=== PATIENT | male | born 1960 | race African-American/Black ===

== ENCOUNTER → 2017-11-22 | Emergency (ER) | payer OTHER | END | disposition left against medical advice (07) | LOC: CANPREER → ER 14:19 | DX: R51 Headache (principal); Z53.21 Procedure and treatment not carried out due to patient leaving prior to being seen by health care provider ==

== ENCOUNTER 2020-10-17 21:30 | Emergency (ER) | payer MEDICARE, MEDICAID ==
[~2020-10-17] VITALS: Ht 167.6 cm; Wt 68.0 kg
[2020-10-17] MEDS ORDERED: ONDANSETRON HCL 4 MG/2 ML VIAL IV ONE (22:45)
[2020-10-17] MEDS ORDERED: HYDROmorphone HCL 2 MG/ML VL IV ONE (22:45)
[2020-10-17] MEDS ORDERED: SODIUM CHLORIDE 0.9% 1,000 ML IV ONE (22:45)
[2020-10-17 22:51] LABS: Basophils # (auto) 0.1 10 ^3/uL (0-0.2); Basophils % (auto) 0.6 % (0.0-2.0); Eosinophils # (auto) 0.3 10 ^3/uL (0-0.8); Eosinophils % (auto) 3.1 % (0.0-7.0); Hematocrit 47.2 % (41.0-53.0); Hemoglobin 15.8 g/dL (13.5-17.5); Lymphocytes # (auto) 1.5 10 ^3/uL (0.4-5.4); Lymphocytes % (auto) 17.2 % (10.0-50.0); Mean Corpuscular Hgb Conc. 33.5 g/dL (32.0-36.0); Mean Corpuscular Volume 95.3 fL (80.0-100.0); Monocytes # (auto) 0.6 10 ^3/uL (0-1.3); Monocytes % (auto) 6.9 % (0.0-12.0); Neutrophils # (auto) 6.3 10 ^3/uL (1.6-8.6); Neutrophils % (auto) 72.2 % (37.0-80.0); Nucleated Red Blood Cells % 0.1 %; Platelet Count (auto) 149 10^3/uL (140-450); Red Blood Cells 4.95 10^6/uL (4.5-5.90); Red Cell Distribution Width 14.1 % (11.8-14.3); White Blood Cell 8.7 10^3/uL (4.4-10.8)
[2020-10-17 23:08] LABS: Albumin 3.4 g/dL (3.4-5.0); Anion Gap 7 (5-15); Blood Urea Nitrogen 20 mg/dL (7-18); Calcium 8.8 mg/dL (8.5-10.1); Carbon Dioxide 26 mmol/L (21-32); Chloride 103 mmol/L (98-107); Glucose 96 mg/dL (74-106); Potassium 4.5 mmol/L (3.5-5.1); Sodium 136 mmol/L (136-145)
[2020-10-17 23:14] LABS: Alanine Aminotransferase 25 U/L (16-61); Alkaline Phosphatase 125 U/L (45-117); Aspartate Aminotransferase 20 U/L (15-37); BUN/Creatinine Ratio 24.4; Bilirubin, Total 0.4 mg/dL (0.2-1.0); GFR African American 123 mL/min; GFR Non-African American 102 mL/min; Total Protein 7.7 g/dL (6.4-8.2)
[2020-10-18] MEDS ORDERED: SODIUM CHLORIDE 0.9% 1,000 ML IV ONE (01:30)
[2020-10-18] MEDS ORDERED: THIAMINE INJ 100 MG in SODIUM CHLORIDE 0.9% 1,000 ML IV ONE (02:45)
[2020-10-18 03:40] LABS: Urine Bacteria NONE SEEN /hpf (None Seen); Urine Blood Negative /uL (Negative); Urine Mucus FEW (None Seen); Urine Specific Gravity 1.018 (1.001-1.035); Urine WBC 1 /hpf (0 - 3)
[2020-10-18 04:00] VITALS: BP 119/71
[2020-10-18] MEDS ORDERED: DICYCLOMINE HCL (10MG/ML) 2 ML AMPULE IM ONE (04:00)
== END 2020-10-18 05:52 | disposition home or self-care (01) ==
LOC: EDBD 21:30 → ER 21:33
DX: F11.23 Opioid dependence with withdrawal (principal); T40.0X5A Adverse effect of opium, initial encounter; G89.4 Chronic pain syndrome; Z87.442 Personal history of urinary calculi; Z88.6 Allergy status to analgesic agent; Y92.89 Other specified places as the place of occurrence of the external cause
CPT/HCPCS: 36415; 74176; 80053; 81001; 83605; 83880; 84484; 85025; 87040; 87086; 93005; 96361; 96372; 96374; 96375; 99285; J0500; J1170; J2405; J3411; J7030

== ENCOUNTER → 2021-12-29 | Outpatient (CLI) | payer MEDICARE, MEDICAID | END | disposition home or self-care (01) | LOC: LAB 10:31 | PROVIDERS: ATTEND Internal Medicine Gastroenterology | DX: Z12.11 Encounter for screening for malignant neoplasm of colon (principal) | CPT/HCPCS: 82274 ==

== ENCOUNTER → 2022-02-03 | Outpatient (CLI) | payer MEDICARE, MEDICAID ==
[2022-02-03 12:54] LABS: Albumin 3.4 g/dL (3.4-5.0); Bilirubin, Direct 0.1 mg/dL (0-0.2); Bilirubin, Total 0.4 mg/dL (0.2-1.0)
== END | disposition home or self-care (01) ==
LOC: LAB 11:50
PROVIDERS: ATTEND Internal Medicine Gastroenterology
DX: R11.2 Nausea with vomiting, unspecified (principal)
CPT/HCPCS: 36415; 80076

== ENCOUNTER → 2023-01-29 | Outpatient (CLI) | payer MEDICARE, MEDICAID ==
[~2023-01-29] VITALS: Ht 157.5 cm; Wt 59.0 kg
[~2023-01-29] MED LIST: REGADENOSON 0.4 MG/5 ML SYRG IV ONE
== END | disposition home or self-care (01) ==
LOC: XYW 09:10
PROVIDERS: ATTEND Internal Medicine
DX: R07.9 Chest pain, unspecified (principal)
CPT/HCPCS: 78452; 93017; A9500; J2785

== ENCOUNTER 2024-04-05 06:22 | Inpatient (IN) | payer MEDICARE, MEDICAID ==
[2024-04-03 12:46] LABS: Urine Bacteria None Seen /hpf (None Seen)
[2024-04-03 12:51] LABS: Basophils # (auto) 0 10 ^3/uL (0-0.2); Basophils % (auto) 1.2 % (0.0-2.0); Eosinophils # (auto) 0.1 10 ^3/uL (0-0.8); Eosinophils % (auto) 3.3 % (0.0-7.0); Hematocrit 45.3 % (41.0-53.0); Hemoglobin 15.2 g/dL (13.5-17.5); Lymphocytes # (auto) 1.7 10 ^3/uL (0.4-5.4); Lymphocytes % (auto) 43.3 % (10.0-50.0); Mean Corpuscular Hemoglobin 31.5 pg (28.0-32.0); Mean Corpuscular Hgb Conc. 33.6 g/dL (32.0-36.0); Mean Corpuscular Volume 93.8 fL (80.0-100.0); Monocytes # (auto) 0.3 10 ^3/uL (0-1.3); Monocytes % (auto) 6.9 % (0.0-12.0); Neutrophils # (auto) 1.8 10 ^3/uL (1.6-8.6); Neutrophils % (auto) 45.3 % (37.0-80.0); Nucleated Red Blood Cells % 0.2 %; Platelet Count (auto) 179 10^3/uL (140-450); Red Blood Cells 4.83 10^6/uL (4.5-5.90); Red Cell Distribution Width 14.1 % (11.8-14.3); White Blood Cell 3.9 10^3/uL (4.4-10.8)
[2024-04-03 13:07] LABS: INR 1.03 (0.9-1.15); Partial Thromboplastin Time 26.4 SEC (24.5-34.5); Prothrombin Time 10.9 sec (9.3-11.8)
[2024-04-03 13:23] LABS: Urine Blood Negative /uL (Negative); Urine Clarity Turbid (Clear); Urine Color Yellow (Yellow); Urine Protein, UAD TRACE (Negative); Urine Specific Gravity 1.019 (1.001-1.035); Urine Urobilinogen 2 mg/dL (Negative); Urine WBC <1 /hpf (0 - 3)
[2024-04-03 13:28] LABS: Alanine Aminotransferase 10 U/L (7-40); Albumin 4.2 g/dL (3.2-4.8); Alkaline Phosphatase 105 U/L (46-116); Anion Gap 8 (5-15); Aspartate Aminotransferase 12 U/L (13-40); BUN/Creatinine Ratio 12.7 (10.0-20.0); Bilirubin, Total 0.4 mg/dL (0.2-1.0); Blood Urea Nitrogen 10 mg/dL (9-23); Calcium 9.3 mg/dL (8.7-10.4); Carbon Dioxide 28 mmol/L (20-30); Chloride 105 mmol/L (98-107); Glucose 86 mg/dL (74-106); Potassium 3.7 mmol/L (3.5-5.1); Sodium 141 mmol/L (136-145); Total Protein 6.8 g/dL (5.7-8.2)
[~2024-04-05] VITALS: Ht 157.5 cm; Wt 65.8 kg
[~2024-04-05 06:22] MED LIST changes: +DIVA-91 PO; +FURO1TAB33 GT; +LISI20TA56 PO; +OMEP-434 PO; -REGADENOSON 0.4 MG/5 ML SYRG IV ONE
[2024-04-05] MEDS: ceFAZolin 2 GM/D5W100ml 100 ML IV ONE (06:38)
[2024-04-05] MEDS: SUCCINYLCHOLINE CHLORIDE 20 MG/ML 10ML VIAL IV ONE (06:55)
[2024-04-05] MEDS: ROCURONIUM 10MG/ML 10ML VIAL IV ONE (06:55)
[2024-04-05] MEDS: BUPIVACAINE 0.25% INJ 50ML VIAL ONE (07:05)
[2024-04-05] MEDS: LIDOCAINE W/ EPINEPHRINE 1% 20ML VIAL ONE (07:05)
[2024-04-05] MEDS ORDERED: SODIUM CHLORIDE LOCK 10 ML ONE (07:06)
[2024-04-05] MEDS ORDERED: MEPERIDINE HCL (50 MG/ML) 1 ML VIAL ONE (07:06)
[2024-04-05] MEDS ORDERED: PROPOFOL 10 MG/ML 20 ML IV ONE (07:06)
[2024-04-05] MEDS ORDERED: fentaNYL CITRATE 100 MCG/2 ML VL ONE (07:06)
[2024-04-05] MEDS ORDERED: MIDAZOLAM HCL 2MG/2ML 2ml VIAL (1mg/ml) ONE (07:06)
[2024-04-05] MEDS ORDERED: ONDANSETRON HCL 4 MG/2 ML VIAL ONE (07:06)
[2024-04-05] MEDS ORDERED: LIDOCAINE HCL 2% TOP JELLY 5ML TOP ONE (07:06)
[2024-04-05] MEDS ORDERED: KETAMINE 50mg/ML 1ml syringe ONE (07:06)
[2024-04-05] MEDS ORDERED: LIDOCAINE 1% INJ PF 5ML AMP ONE (07:06)
[2024-04-05] MEDS ORDERED: MORPHINE SULFATE INJ 2 MG/ml SYRG IV PRN (07:30)
[2024-04-05] MEDS ORDERED: HYDROmorphone HCL 2 MG/ML VL/or syr IV PRN ×4 (07:30→13:45)
[2024-04-05] MEDS: METOCLOPRAMIDE HCL 5MG/ml INJ 2ml VIAL IV ONE (07:30)
[2024-04-05] MEDS ORDERED: fentaNYL CITRATE 100 MCG/2 ML VL IV PRN (07:30)
[2024-04-05] MEDS: KETOROLAC TROMETH 30 MG/ML 1ML VIAL IV ONE (07:30)
[2024-04-05] MEDS: BUPIVACAINE 0.25% INJ 50ML VIAL IJ ONE (08:08)
[2024-04-05 08:30] VITALS: PULSE 92; RESP 20; O2SAT 95
[2024-04-05] MEDS: D5W/SOD CHL 0.45%/KCL 20MEQ 1,000 ML IV SCH (09:00)
[2024-04-05] MEDS: MORPHINE SULFATE INJ 2 MG/ml SYRG IV ONE ×2 (09:27→10:00)
[2024-04-05] MEDS ORDERED: NITROGLYCERIN 0.4 MG SL TAB SL PRN (10:30)
[2024-04-05] MEDS: ceFAZolin 1GM/50ML 50 ML IV SCH (12:00)
[2024-04-05] MEDS ORDERED: ONDANSETRON HCL 4 MG/2 ML VIAL IV PRN (13:45)
[2024-04-05 13:53] VITALS: BP 113/81; PULSE 61; RESP 17; TEMP 97.4; O2SAT 93
[2024-04-05 15:11] VITALS: BP 113/81; PULSE 61; PULSE 86; RESP 18; TEMP 97.4; O2SAT 93
[2024-04-05 16:58] VITALS: BP 117/78; PULSE 63; RESP 17; TEMP 97.7; O2SAT 94
[2024-04-05] MEDS: ACETAMINOPHEN/CODEINE#3 (300/30mg) TAB PO PRN (18:16)
[2024-04-05 20:00] VITALS: PULSE 59; RESP 17; O2SAT 96
[2024-04-05 21:00] VITALS: BP 102/68; PULSE 59; RESP 17; TEMP 97.7; O2SAT 96
[2024-04-06] VITALS (7 sets, daily range): BP systolic 100–137; BP diastolic 58–88; PULSE 54–96; RESP 15–20; TEMP 97.7–98.9; O2SAT 94–99
[2024-04-06 07:01] LABS: Basophils # (auto) 0 10 ^3/uL (0-0.2); Basophils % (auto) 0.1 % (0.0-2.0); Eosinophils # (auto) 0 10 ^3/uL (0-0.8); Hemoglobin 13.7 g/dL (13.5-17.5); Lymphocytes # (auto) 0.9 10 ^3/uL (0.4-5.4); Lymphocytes % (auto) 9.7 % (10.0-50.0); Mean Corpuscular Hemoglobin 31.9 pg (28.0-32.0); Mean Corpuscular Hgb Conc. 33.5 g/dL (32.0-36.0); Mean Corpuscular Volume 95.3 fL (80.0-100.0); Monocytes # (auto) 0.5 10 ^3/uL (0-1.3); Monocytes % (auto) 5.6 % (0.0-12.0); Neutrophils # (auto) 7.7 10 ^3/uL (1.6-8.6); Neutrophils % (auto) 84.6 % (37.0-80.0); Nucleated Red Blood Cells % 0.1 %; Platelet Count (auto) 152 10^3/uL (140-450); Red Cell Distribution Width 14.2 % (11.8-14.3); White Blood Cell 9.1 10^3/uL (4.4-10.8)
[2024-04-06 07:17] LABS: Albumin 3.5 g/dL (3.2-4.8); Alkaline Phosphatase 88 U/L (46-116); Anion Gap 6 (5-15); Aspartate Aminotransferase 11 U/L (13-40); BUN/Creatinine Ratio 10.4 (10.0-20.0); Blood Urea Nitrogen 8 mg/dL (9-23); Calcium 8.8 mg/dL (8.7-10.4); Carbon Dioxide 24 mmol/L (20-30); Chloride 110 mmol/L (98-107); Glucose 130 mg/dL (74-106); Potassium 4.1 mmol/L (3.5-5.1); Sodium 140 mmol/L (136-145)
[2024-04-06 07:18] LABS: Bilirubin, Total 0.4 mg/dL (0.2-1.0); Total Protein 5.8 g/dL (5.7-8.2)
[2024-04-06 07:20] LABS: Alanine Aminotransferase < 9 U/L (7-40)
[2024-04-06] MEDS: PANTOPRAZOLE 40 MG/10 ML VIAL INJ IV SCH (09:15)
[2024-04-06] MEDS ORDERED: HYDROcodone-ACET 5/325MG TAB PO PRN (11:30)
[2024-04-06] MEDS: MORPHINE SULFATE INJ 2 MG/ml SYRG IV PRN (13:08)
[2024-04-06] MEDS: D5W/SOD CHL 0.45%/KCL 20MEQ 1,000 ML IV SCH (13:09)
[2024-04-06] MEDS: ceFAZolin 1GM/50ML 50 ML IV SCH (19:00)
[2024-04-07] VITALS (8 sets, daily range): BP systolic 124–143; BP diastolic 73–89; PULSE 63–96; RESP 16–19; TEMP 98–99.7; O2SAT 93–98
[2024-04-07] MEDS: MORPHINE SULFATE INJ 2 MG/ml SYRG IV PRN (04:23)
[2024-04-07 08:11] LABS: Basophils # (auto) 0 10 ^3/uL (0-0.2); Basophils % (auto) 0.3 % (0.0-2.0); Eosinophils # (auto) 0 10 ^3/uL (0-0.8); Eosinophils % (auto) 0.1 % (0.0-7.0); Hematocrit 43.4 % (41.0-53.0); Hemoglobin 14.5 g/dL (13.5-17.5); Lymphocytes # (auto) 1.2 10 ^3/uL (0.4-5.4); Lymphocytes % (auto) 14.3 % (10.0-50.0); Mean Corpuscular Hemoglobin 31.4 pg (28.0-32.0); Mean Corpuscular Hgb Conc. 33.4 g/dL (32.0-36.0); Monocytes # (auto) 0.6 10 ^3/uL (0-1.3); Monocytes % (auto) 6.9 % (0.0-12.0); Neutrophils # (auto) 6.5 10 ^3/uL (1.6-8.6); Neutrophils % (auto) 78.4 % (37.0-80.0); Platelet Count (auto) 165 10^3/uL (140-450); Red Blood Cells 4.61 10^6/uL (4.5-5.90); Red Cell Distribution Width 14.2 % (11.8-14.3); White Blood Cell 8.3 10^3/uL (4.4-10.8)
[2024-04-07 08:18] LABS: Anion Gap 7 (5-15); Carbon Dioxide 24 mmol/L (20-31); Chloride 109 mmol/L (98-107); Potassium 4.1 mmol/L (3.5-5.1); Sodium 140 mmol/L (136-145)
[2024-04-07 08:20] LABS: Calcium 8.9 mg/dL (8.7-10.4)
[2024-04-07 08:24] LABS: BUN/Creatinine Ratio 7.5 (10.0-20.0); Blood Urea Nitrogen 6 mg/dL (9-23)
[2024-04-07 08:29] LABS: Glucose 104 mg/dL (74-106)
[2024-04-07] MEDS: KETOROLAC TROMETH 30 MG/ML 1ML VIAL IV PRN (13:43)
[2024-04-08 05:09] VITALS: BP 107/73; PULSE 63; RESP 16; TEMP 98.3; O2SAT 95
[2024-04-08 08:16] VITALS: BP 123/75; PULSE 78; RESP 17; TEMP 98.5; O2SAT 98
[2024-04-08 12:05] VITALS: BP 114/75; PULSE 48; RESP 18; TEMP 98.4; O2SAT 95
[2024-04-08 16:30] VITALS: BP 126/76; PULSE 52; RESP 19; TEMP 98.1; O2SAT 96
[2024-04-08 21:00] VITALS: BP 132/76; PULSE 72; RESP 18; TEMP 98.3; O2SAT 97
[2024-04-09] VITALS (7 sets, daily range): BP systolic 111–145; BP diastolic 69–83; PULSE 51–60; RESP 17–18; TEMP 97.8–99; O2SAT 95–98
[2024-04-09] MEDS: MILK OF MAGNESIA 30ML SUSP PO ONE (12:43)
[2024-04-10 05:00] VITALS: BP 139/79; PULSE 51; RESP 16; TEMP 98.2; O2SAT 95
[2024-04-10 08:00] VITALS: PULSE 63; RESP 20; O2SAT 94
[2024-04-10 09:00] VITALS: BP 149/84; PULSE 63; RESP 20; TEMP 98; O2SAT 94
[2024-04-10] MEDS: MILK OF MAGNESIA 30ML SUSP PO SCH (10:00)
[2024-04-10] MEDS ORDERED: KETO10TA PO (12:21)
[2024-04-10] MEDS ORDERED: DOCU-94 PO (12:21)
[2024-04-10 12:54] VITALS: BP 149/84; PULSE 63; RESP 20; TEMP 98; O2SAT 98
== END 2024-04-10 15:25 | disposition home or self-care (01) | DRG 352 ==
LOC: SUR 06:22 → OVERFLOW 10:36 → WEST WING 13:47
PROVIDERS: ADMIT Internal Medicine; ATTEND Internal Medicine
PROC: 0YQ50ZZ Repair Right Inguinal Region, Open Approach (ICD-10-PCS; principal; 2024-04-05 07:33)
DX: K40.90 Unilateral inguinal hernia, without obstruction or gangrene, not specified as recurrent (principal); G80.9 Cerebral palsy, unspecified; I10 Essential (primary) hypertension; K59.00 Constipation, unspecified; Z99.3 Dependence on wheelchair; Z79.899 Other long term (current) drug therapy
CPT/HCPCS: 36415; 80048; 80053; 80164; 81001; 85025; 85610; 85730; 86850; 86900; 86901; 97163; G0378; J0330; J1885; J2250; J2405; J2470; J2704; J3490

== ENCOUNTER 2024-08-01 13:29 | Inpatient (IN) | payer MEDICARE, MEDICAID ==
[~2024-08-01] VITALS: Ht 157.5 cm; Wt 65.0 kg
[~2024-08-01 13:29] MED LIST changes: +DOCU-94 PO; +KETO10TA PO
--- NOTE | 2024-08-01 13:59 | ED.PDOC ---
Musculoskeletal HPI Comments 64 year old male presents to the ED with chief complaint of foot wound. Patient reports that he has had a wound to the back of his left foot that has turned black over the past few days. Patient relays that he is worried of lack of blood flow and wants it checked out. Patient states he lives with his family and they help take care of him. Patient denies any numbness, weakness, fever, or chills. Time Seen by MD: 13:55 Reviewed Notes: Nurses Notes, Medications, Allergies Allergies: Coded Allergies: Meperidine (Verified Allergy, Unknown, 10/18/20) Home Meds Active Scripts Docusate Sodium (Colace) 100 Mg Cap, 1 CAP PO BID PRN for 15 Days, #40 CAP Prov:LORRAINE HORTON MD 04/10/24 Ketorolac Tromethamine (Ketorolac Tromethamine) 10 Mg Tab, 1 TAB PO TIDP PRN for 5 Days, #15 TAB Prov:LORRAINE HORTON MD 04/10/24 Reported Medications Furosemide (Lasix) 20 Mg Tb, 20 MG GT DAILY, TAB 04/03/24 Lisinopril (Lisinopril) 20 Mg Tab, 10 MG PO DAILY, TAB 04/03/24 Omeprazole Magnesium (Omeprazole) 20 Mg Tab, 20 MG PO DAILY, TAB 04/03/24 Divalproex Sodium (Depakote) 500 Mg Tab, 500 MG PO DAILY, TAB 04/03/24 Information Source: Patient Mode of Arrival: Wheelchair Location: Left Extremity Location: Foot Timing: Hours Prehospital treatment: None Severity: Moderate Able to Move Extremity: Yes Bear Weight: Limited Pain: Moderate Mechanism: Spontaneous Circumstances: Preceding Wound Onset of Symptoms: Spontaneous Symptoms: Swelling, Pain DVT Risk Factors: NONE Last Tetanus: Unknown Past Medical History PAST MEDICAL HISTORY: Arthritis, Kidney Stones Past Medical History (Other): Cerebral Palsy Surgical History: Hernia Repair Family History Family History: Reviewed,noncontributory to illness, Unknown Social History Smoker: Non-Smoker Alcohol: Denies ETOH Use Drugs: Denies Drug Use Lives In: Home Constitutional: denies: chills, diaphoresis, fatigue, fever, malaise, sweats, weakness, others EENTM: denies: blurred vision, double vision, ear bleeding, ear discharge, ear drainage, ear pain, ear ringing, eye pain, eye redness, hearing loss, mouth pain, mouth swelling, nasal discharge, nose bleeding, nose congestion, nose pain, photophobia, tearing, throat pain, throat swelling, voice changes, others Respiratory: denies: cough, hemoptysis, orthopnea, SOB at rest, shortness of breath, SOB with excertion, stridor, wheezing, others Cardiovascular: denies: chest pain, dizzy spells, diaphoresis, Dyspnea on exertion, edema, irregular heart beat, left arm pain, lightheadedness, palpitations, PND, syncope, others Gastrointestinal: denies: abdomen distended, abdominal pain, blood streaked bowels, constipated, diarrhea, dysphagia, difficulty swallowing, hematemesis, melena, nausea, poor appetite, poor fluid intake, rectal bleeding, rectal pain, vomiting, others Genitourinary: denies: burning, dysuria, flank pain, frequency, hematuria, incontinence, penile discharge, penile sore, pain, testicle pain, testicle swelling, urgency, others Neurological: denies: dizziness, fainting, headache, left sided numbness, left sided weakness, numbness, paresthesia, pre-existing deficit, right sided numbness, right sided weakness, seizure, speech problems, tingling, tremors, weakness, others Musculoskeletal: denies: back pain, gout, joint pain, joint swelling, muscle pain, muscle stiffness, neck pain, others Integumetry: reports: change in color (Black discoloration to Left foot), wounds (Left foot wound); denies: bruises, change in hair/nails, dryness, laceration, lesions, lumps, rash, others Allergic/Immunocompromised: denies: Difficulty Healing, Frequent Infections, Hives, Itching, others Hematologic/Lymphatic: denies: anemia, blood clots, easy bleeding, easy bruising, swollen glands, others Endocrine: denies: excessive hunger, excessive sweating, excessive thirst, excessive urination, flushing, intolerance to cold, intolerance to heat, unexplained weight gain, unexplained weight loss, others Psychiatric: denies: anxiety, bipolar disorder, depression, hopeless, panic disorder, schizophrenia, sleepless, suicidal, others All Other Systems: Reviewed and Negative Physical Exam General Appearance: Moderate Distress, Normal HEENT: Normal ENT Inspection, PERRL/EOMI Neck: Full Range of Motion, Non-Tender, Normal, Normal Inspection Respiratory: Chest Non-Tender, Lungs Clear, No Accessory Muscle Use, No Respiratory Distress, Normal Breath Sounds Cardiovascular: No Edema, No JVD, No Murmur, No Gallop, Normal Peripheral Pulses, Regular Rate/Rhythm Breast Exam: Deferred Gastrointestinal: No Organomegaly, Non Tender, No Pulsatile Mass, Normal Bowel Sounds, Soft Genitalia: Deferred Pelvic: Deferred Rectal: Deferred Extremities: No calf tenderness, Normal capillary refill, Normal range of motion, Non-tender, No pedal edema Musculoskeletal : Apperance: Normal Neurologic: Alert Cerebellar Function: NOT DONE Reflexes: NOT DONE Skin: Dry, Normal Color, Warm, Wounds (Discoloration of the left heel) Peripheral Pulses: 3+ Radial (R), 3+ Radial (L) Lymphatic: No Adenopathy Was a procedure done? Was a procedure done?: No Differential Diagnosis EXT Differential Diagnosis: Cellulitis X-Ray, Labs, Meds, VS Vital Signs Date Time Temp Pulse Resp B/P (MAP) Pulse Ox O2 Delivery O2 Flow Rate FiO2 08/01/24 15:38 98.3 72 16 127/88 (101) 98 98.3 08/01/24 15:00 Room Air* 0 21 08/01/24 13:57 97.8 89 18 133/94 (107) 98 Lab Test 08/01/24 14:24 Range/Units White Blood Count 4.4 4.4-10.8 10^3/uL Red Blood Count 4.87 4.5-5.90 10^6/uL Hemoglobin 15.4 13.5-17.5 g/dL Hematocrit 46.2 41.0-53.0 % Mean Corpuscular Volume 94.8 80.0-100.0 fL Mean Corpuscular Hemoglobin 31.5 28.0-32.0 pg Mean Corpuscular Hemoglobin Concent 33.3 32.0-36.0 g/dL Red Cell Distribution Width 14.2 11.8-14.3 % Platelet Count 182 140-450 10^3/uL Mean Platelet Volume 8.7 6.9-10.8 fL Neutrophils (%) (Auto) 40.1 37.0-80.0 % Lymphocytes (%) (Auto) 44.3 10.0-50.0 % Monocytes (%) (Auto) 7.2 0.0-12.0 % Eosinophils (%) (Auto) 7.2 H 0.0-7.0 % Basophils (%) (Auto) 1.2 0.0-2.0 % Neutrophils # (Auto) 1.8 1.6-8.6 10 ^3/uL Lymphocytes # (Auto) 2.0 0.4-5.4 10 ^3/uL Monocytes # (Auto) 0.3 0-1.3 10 ^3/uL Eosinophils # (Auto) 0.3 0-0.8 10 ^3/uL Basophils # (Auto) 0.1 0-0.2 10 ^3/uL Nucleated Red Blood Cells 0.0 % Sodium Level 140 136-145 mmol/L Potassium Level 3.5 3.5-5.1 mmol/L Chloride Level 105 98-107 mmol/L Carbon Dioxide Level 29 20-31 mmol/L Anion Gap Pending Blood Urea Nitrogen 10 9-23 mg/dL Creatinine 0.81 0.700-1.30 mg/dL Glomerular Filtration Rate Calc 98 >90 mL/min BUN/Creatinine Ratio 12.3 10.0-20.0 Serum Glucose 91 74-106 mg/dL Calcium Level 9.3 8.7-10.4 mg/dL Patient alert. Chronic condition. History of cerebral palsy. Vitals stable. On examination he does have discoloration in the left heel. Peripheral vascular disease. He does take care himself. Arthritis. Arterial ultrasound. Explained to the patient. Continue cardiac monitoring. Low Ext Art US: IMPRESSION: No hemodynamically significant stenosis based on peak systolic velocity criteria. Monophasic waveform within the left dorsalis pedis artery which may be from vasodilation. Images Reviewed?: Images reviewed and evaluated by me Time of 1ST Reevaluation: 14:55 Reevaluation 1ST: Unchanged Patient Education/Counseling: Diagnosis, Treatment Family Education/Counseling: No Family Present Additional Information I reviewed the following notes from patient's past medical encounters: 04/05/24 for Inguinal hernia surgery The following tests were ordered, and results were reviewed by me: Vasc Arterial US, BMP, CBC Additional Information was gathered from interviewing the following independent historians: None I reviewed and agreed with the following test results read by other providers: Vasc Arterial US I discussed treatment and results with medical personnel and none. Departure 1 Departure Time of Disposition: 14:13 Impression: Primary Impression: Peripheral vascular disease Disposition: 09 ADMITTED INPATIENT Admit to: Med Surg Condition: Guarded Critical Care Note Critical Care Time?: No Stability Stability form required: No Heart Score Heart Score: Heart Score Response (Comments) Value History N/A 0 EKG N/A 0 Age N/A 0 Risk Factors N/A 0 Troponin N/A 0 Total 0 I personally scribed for JONI RACHEL MD ([email or web address]) on 08/01/24 at 13:59. Electronically submitted by Duc Puente ([email or web address]). I personally scribed for JONI RACHEL MD ([email or web address]) on 08/01/24 at 14:02. Electronically submitted by Duc Puente ([email or web address]). I personally scribed for JONI RACHEL MD ([email or web address]) on 08/01/24 at 15:54. Electronically submitted by Duc Puente ([email or web address]). JONI RACHEL MD Aug 01, 2024 13:59
[2024-08-01 14:58] LABS: Basophils # (auto) 0.1 10 ^3/uL (0-0.2); Basophils % (auto) 1.2 % (0.0-2.0); Chloride 105 mmol/L (98-107); Eosinophils # (auto) 0.3 10 ^3/uL (0-0.8); Eosinophils % (auto) 7.2 % (0.0-7.0); Hematocrit 46.2 % (41.0-53.0); Hemoglobin 15.4 g/dL (13.5-17.5); Lymphocytes % (auto) 44.3 % (10.0-50.0); Mean Corpuscular Hemoglobin 31.5 pg (28.0-32.0); Mean Corpuscular Hgb Conc. 33.3 g/dL (32.0-36.0); Mean Corpuscular Volume 94.8 fL (80.0-100.0); Monocytes # (auto) 0.3 10 ^3/uL (0-1.3); Monocytes % (auto) 7.2 % (0.0-12.0); Neutrophils # (auto) 1.8 10 ^3/uL (1.6-8.6); Neutrophils % (auto) 40.1 % (37.0-80.0); Platelet Count (auto) 182 10^3/uL (140-450); Red Blood Cells 4.87 10^6/uL (4.5-5.90); Red Cell Distribution Width 14.2 % (11.8-14.3); White Blood Cell 4.4 10^3/uL (4.4-10.8)
[2024-08-01 14:59] LABS: Carbon Dioxide 29 mmol/L (20-31)
[2024-08-01 15:00] LABS: Calcium 9.3 mg/dL (8.7-10.4)
[2024-08-01 15:05] LABS: BUN/Creatinine Ratio 12.3 (10.0-20.0); Blood Urea Nitrogen 10 mg/dL (9-23); Glucose 91 mg/dL (74-106)
[2024-08-01 15:09] LABS: Potassium 3.5 mmol/L (3.5-5.1)
--- NOTE | 2024-08-01 15:45 | DVH ---
Left Lower Extremity Arterial Duplex Clinical History: Peripheral vascular disease Comparison: None Technique: Duplex Doppler evaluation including color Doppler and spectral/pulsed waveform analysis of the lower extremity arteries was performed. Findings: Left: Peak systolic velocities are as follows: [employer] 86 cm/s Deep femoral 30 cm/s SFA proximal 66 cm/s SFA mid-portion 54 cm/s SFA distal 30 cm/s Popliteal 38 cm/s Posterior tibial 32 cm/s Anterior tibial 62 cm/s Dorsalis pedis 47 cm/s Monophasic waveform within the left dorsalis pedis artery. Otherwise, biphasic and triphasic wavefor ms throughout the left lower extremity arteries. IMPRESSION: No hemodynamically significant stenosis based on peak systolic velocity criteria. Monophasic waveform within the left dorsalis pedis artery which may be from vasodilation. REFERENCE VALUES, [facility] ([facility]) vascular Imaging Lab Criteria: Peak systolic velocity ranges (in cm/sec) are as follows: <150 cm/s - <20 % stenosis 150-200 cm/s - 20-49% stenosis 200-300 cm/s - 50-75% stenosis >300 cm/s -> 75% stenosis
[2024-08-01 17:37] LABS: Anion Gap 6 (5-15); Sodium 140 mmol/L (136-145)
--- NOTE | 2024-08-01 21:54 | DVHHPRES ---
History of Present Illness Resident Creating Document: ELINOR MCCLURE RESIDENT History of Present Illness Patient is a 64-year-old male with past medical history of cerebral palsy, hypertension, tremors, who came in at the direction of his PCP. According to the patient for the past few months has been experiencing left foot discolo ration which is localized to the left heel and posterior aspect of the left foot. Patient notes that yesterday he started experiencing a pain in his left foot which was constant, throbbing and 10/10. He has noticed that using [id number] topical analgesics minimally helped his pain, bearing weight worsens the pain. At baseline patient uses a motorized wheelchair. Arterial Doppler was unremarkable. On review of systems patient is complaining of fatigue, chills, dysuria. Past Medical History cerebral palsy, hypertension, tremors Past Surgical History Right inguinal hernia repair, multiple bilateral lower extremity orthopedic surgeries Smoke: No ALCOHOL: none Drugs: Marijuana Lives: with Family Review of Systems Constitutional: Yes: Chills, Malaise; No: Fever, Sweats, Weakness, Other Eyes: No: Pain, Vision change, Conjunctivae inflammation, Eyelid inflammation, Other, Redness ENT: No: Ear pain, Ear discharge, Nose pain, Nose discharge, Nose congestion, Mouth pain, Mouth swelling, Throat pain, Throat swelling, Other Respiratory: No: Cough, Dry, Shortness of breath, SOB with excertion, Wheezing, Hemoptysis, Pleuritic Pain, Sputum, Wheezing, Other Cardiovascular: No: Chest Pain, Palpitations, Orthopnea, Paroxysmal Noc. Dyspnea, Edema, Lt Headedness, Other Gastrointestinal: No: Nausea, Vomiting, Abdominal Pain, Diarrhea, Constipation, Melena, Hematochezia, Other Genitourinary: Dysuria; No Frequency, No Incontinence, No Hematuria, No Retention, No Other Musculoskeletal: No: other, neck pain, shoulder pain, arm pain, back pain, hand pain, leg pain, foot pain Skin: Rash; No: Lesions, Jaundice, Bruising, Other Neurological: No: Weakness, Numbness, Incoordination, Change in speech, Confusion, Seizures, Other Allergies: Coded Allergies: Meperidine (Verified Allergy, Unknown, 10/18/20) Exam Vital Signs Vital Signs Date Time Temp Pulse Resp B/P (MAP) Pulse Ox O2 Delivery O2 Flow Rate FiO2 08/01/24 19:42 98.4 82 19 113/72 (86) 98 98.4 08/01/24 15:00 Room Air* 0 21 General Appearance: Alert, Oriented X3, Cooperative, No acute distress HEENT: Atraumatic, PERRLA, EOMI, Mucous membr. moist/pink Respiratory: Clear to auscultation, Normal air movement Cardiovascular: Regular rate, Normal S1, Normal S2 Abdominal: Normal bowel sounds, Soft, No tenderness Extremities: No edema, Normal pulses, Other (Posterior aspect of the left heel swollen, tender to palpation and hyperpigmented) Neuro: Normal speech, Sensation intact Psych/Mental Status: Mental status NL, Mood NL Labs/Xrays Labs Test 08/01/24 14:24 Range/Units White Blood Count 4.4 4.4-10.8 10^3/uL Red Blood Count 4.87 4.5-5.90 10^6/uL Hemoglobin 15.4 13.5-17.5 g/dL Hematocrit 46.2 41.0-53.0 % Mean Corpuscular Volume 94.8 80.0-100.0 fL Mean Corpuscular Hemoglobin 31.5 28.0-32.0 pg Mean Corpuscular Hemoglobin Concent 33.3 32.0-36.0 g/dL Red Cell Distribution Width 14.2 11.8-14.3 % Platelet Count 182 140-450 10^3/uL Mean Platelet Volume 8.7 6.9-10.8 fL Neutrophils (%) (Auto) 40.1 37.0-80.0 % Lymphocytes (%) (Auto) 44.3 10.0-50.0 % Monocytes (%) (Auto) 7.2 0.0-12.0 % Eosinophils (%) (Auto) 7.2 H 0.0-7.0 % Basophils (%) (Auto) 1.2 0.0-2.0 % Neutrophils # (Auto) 1.8 1.6-8.6 10 ^3/uL Lymphocytes # (Auto) 2.0 0.4-5.4 10 ^3/uL Monocytes # (Auto) 0.3 0-1.3 10 ^3/uL Eosinophils # (Auto) 0.3 0-0.8 10 ^3/uL Basophils # (Auto) 0.1 0-0.2 10 ^3/uL Nucleated Red Blood Cells 0.0 % Sodium Level 140 136-145 mmol/L Potassium Level 3.5 3.5-5.1 mmol/L Chloride Level 105 98-107 mmol/L Carbon Dioxide Level 29 20-31 mmol/L Anion Gap 6 5-15 Blood Urea Nitrogen 10 9-23 mg/dL Creatinine 0.81 0.700-1.30 mg/dL Glomerular Filtration Rate Calc 98 >90 mL/min BUN/Creatinine Ratio 12.3 10.0-20.0 Serum Glucose 91 74-106 mg/dL Calcium Level 9.3 8.7-10.4 mg/dL Assessment/Plan Assessment/Plan Possible left heel cellulitis - arterial doppler: No hemodynamically significant stenosis based on peak systolic velocity criteria. - IV clindamycin - norco 5 once - tylenol 625mg as needed for pain Hypertension - resumed home lisinopril and furosemide History of cerebral palsy - monitor PUD prophylaxis: protonix 40mg DVT prophylaxis: Levonox 40mg Goals of care: Full code, discussed for >16 minutes on 08/01/24 Plan discussed with patient Plan discussed with Dr. Willis Plan discussed with: Patient, Other (RN) My Orders Orders - ELINOR MCCLURE Procedure Category Date Status Time Admit ADMIT 08/01/24 Transmitted 21:48 Urinalysis LAB 08/01/24 Transmitted 21:48 Chest Portable XY 08/01/24 Transmitted 21:48 Cardiac DIET 08/02/24 Transmitted Diet-2gna,Lofat,Lochol Breakfast Notify Md Of Changes RYAN 08/01/24 Transmitted From Base 21:48 Enoxaparin Sodium PHA 08/02/24 Transmitted (Lovenox) 10:00 Pantoprazole PHA 08/02/24 Transmitted (Protonix) 10:00 Acetaminophen Tablet PHA 08/01/24 Transmitted (Tylenol Tablet) 22:00 Clindamycin Ivpb PHA 08/01/24 Transmitted Cleocin 22:00 Furosemide Tablet PHA 08/02/24 Transmitted (Lasix Tablet) 10:00 Lisinopril Tablet PHA 08/02/24 Transmitted (Zestril Tablet) 10:00 Date of Service: Aug 01, 2024 Billing Provider: SANDRA WILLIS MD Common Visit Codes: 48679-AXCQKLC INP/OBS CARE (HIGH) Secondary Visit Codes: 47626-[id number] CARE PLAN 30 MINUTES ELINOR MCCLURE Aug 01, 2024 21:54 SANDRA WILLIS MD Aug 02, 2024 09:20
--- NOTE | 2024-08-01 22:16 | DVH ---
CHEST RADIOGRAPH Indication: cough Technique: Single frontal view of the chest was obtained Comparison: None FINDINGS: Lines and Tubes: None Lungs: No focal consolidation. Pleura: No effusion. No pneumothorax. Cardiomediastinal contours: Unremarkable Bones: No acute osseous abnormality. IMPRESSION: 1. No acute cardiopulmonary disease.
[2024-08-01] MEDS: CLINDAMYCIN 300MG IV 50 ML IV SCH (22:35)
[2024-08-01] MEDS: ACETAMINOPHEN 325 MG TAB PO PRN (23:20)
[2024-08-02 03:44] LABS: Urine Bacteria FEW /hpf (None Seen); Urine Blood Negative /uL (Negative); Urine Clarity Clear (Clear); Urine Color Yellow (Yellow); Urine Mucus FEW (None Seen); Urine Protein, UAD Negative (Negative); Urine Specific Gravity 1.024 (1.001-1.035); Urine Squamous Epithelial Cell None Seen /hpf (<5); Urine Urobilinogen 2 mg/dL (Negative); Urine WBC 1 /HPF (0-3)
[2024-08-02] MEDS: HYDROcodone-ACET 5/325MG TAB PO ONE (04:22)
[2024-08-02 07:47] VITALS: RESP 16; O2SAT 97
[2024-08-02 09:00] LABS: COVID19 ANTIGEN SOFIA FIA NEGATIVE (NEGATIVE); Rapid Influenza A Negative (Negative); Rapid Influenza B Negative (Negative)
[2024-08-02] MEDS: ENOXAPARIN SOD 40 MG/0.4 ML SYRINGE SC SCH (09:38)
[2024-08-02] MEDS: PANTOPRAZOLE 40 MG/10 ML VIAL INJ IV SCH (09:39)
[2024-08-02] MEDS: LISINOPRIL 20 MG TAB PO SCH (09:39)
[2024-08-02] MEDS: FUROSEMIDE 20 MG TAB GT SCH (09:40)
--- NOTE | 2024-08-02 10:32 | DVH ---
EXAM: XY L FOOT 2 VIEW XRAY CLINICAL INDICATION: Lt foot pain TECHNIQUE: XY L FOOT 2 VIEW XRAY Comparison: None FINDINGS/IMPRESSION: There is no evidence of acute fracture or dislocation. Chronic deformed involving the 1st MTP joint The alignment is anatomical. There is no radiopaque foreign body.
--- NOTE | 2024-08-02 12:15 | DVH ---
EXAMINATION: CT CT L FOOT WO CONTRAST INDICATION: Lt foot pain COMPARISON: Left foot radiograph dated 08/02/2024 TECHNIQUE: CT of the left foot was performed without contrast. Volume transverse images were obtained reconstructed in multiple planes using bone and soft tissue algorithms. Radiation Dose Information: CT Dose: CTDI volume is 7.75 mGy. Dose-length product is 176.05 mGy*cm FINDINGS: Pes planus. Diffuse osteopenia. The joint spaces are normal. There is no fracture, dislocation, or focal osseous lesions. There are no joint effusions. Soft-tissue swelling and edema around the ankle and proximal foot. IMPRESSION: No definite CT findings of osteomyelitis. MRI can be performed to further evaluate if clinically indicated.
--- NOTE | 2024-08-02 14:33 | DVHPNRES ---
Progress Note Date Seen: Aug 02, 2024 Resident Creating Document: LEXIE DAILEY RESIDENT Objective vital signs Vital Sign Date Time Temp Pulse Resp B/P (MAP) Pulse Ox O2 Delivery O2 Flow Rate FiO2 08/02/24 13:38 74 105/78 (87) 96 08/02/24 12:00 98.4 98.4 08/02/24 10:14 18 08/02/24 07:47 Room Air* 0 21 Total Intake and Output 08/01/24 08/01/24 08/02/24 15:00 23:00 07:00 Intake Total 100 ml Balance 100 ml medications Current Medications Medications Dose Ordered Sig/Mary Route Start Time Stop Time Status Last Admin Dose Admin Enoxaparin Sodium 40 mg DAILY SC 08/02/24 10:00 08/02/24 09:38 40 MG Pantoprazole Sodium 40 mg DAILY IV 08/02/24 10:00 08/02/24 09:39 40 MG Acetaminophen 650 mg Q4HP PRN PO 08/01/24 22:00 Clindamycin Phosphate 50 ml @ 50 mls/hr Q8HR IV 08/01/24 22:00 08/02/24 13:53 50 MLS/HR Furosemide 20 mg DAILY GT 08/02/24 10:00 08/02/24 09:40 20 MG Lisinopril 10 mg DAILY PO 08/02/24 10:00 08/02/24 09:39 10 MG laboratory and microbiology Laboratory Tests 08/01/24 14:24 Test 08/01/24 14:24 Range/Units Serum Glucose 91 74-106 mg/dL My Orders My Orders Orders - LEXIE DAILEY RESIDENT Procedure Category Date Status Time L Foot 2 View Xray XY 08/02/24 Resulted 09:47 Ct L Foot Wo Contrast CT 08/02/24 Resulted 11:20 LEXIE DAILEY RESIDENT Aug 02, 2024 14:33
[2024-08-02] MEDS ORDERED: DICL1GEL59 EX (14:46)
[2024-08-02] MEDS ORDERED: AUG875T PO (14:46)
[2024-08-02] MEDS ORDERED: IBUP-1453 PO (14:46)
--- NOTE | 2024-08-02 14:47 | DVHDSRES ---
Discharge Summary Date of Admission Resident Creating Document: LEXIE DAILEY RESIDENT Aug 01, 2024 at 21:48 Date of Discharge: Aug 02, 2024 Admitting Diagnosis Possible left heel cellulitis Wounds: No wound was present Labs/Diagnostic Data: Laboratory Results Test 08/02/24 08:34 08/02/24 08:19 08/02/24 03:06 08/01/24 14:24 Hemoglobin A1c 5.6 % A1C (<5.7) Thyroid Stimulating Hormone (TSH) 0.47 uIU/mL (0.55-4.78) Influenza Type A Antigen Negative (Negative) Influenza Type B Antigen Negative (Negative) SARS-CoV-2 Antigen (Rapid) Negative (NEGATIVE) Urine Color Yellow (Yellow) Urine Clarity Clear (Clear) Urine pH 6.0 (5.0-9.0) Urine Specific [place] 1.024 (1.001-1.035) Urine Protein Negative (Negative) Urine Ketones Negative (Negative) Urine Blood Negative /uL (Negative) Urine Nitrite Negative (Negative) Urine Bilirubin Negative (Negative) Urine Urobilinogen 2 mg/dL (Negative) Urine Leukocyte Esterase Negative /uL (Negative) Urine RBC <1 /hpf (0 - 3) Urine Microscopic WBC 1 /HPF (0-3) Urine Squamous Epithelial Cells None seen /hpf (<5) Urine Bacteria Few /hpf (None Seen) Urine Mucus Few (None Seen) Urine Glucose Normal mg/dL (Normal) White Blood Count 4.4 10^3/uL (4.4-10.8) Red Blood Count 4.87 10^6/uL (4.5-5.90) Hemoglobin 15.4 g/dL (13.5-17.5) Hematocrit 46.2 % (41.0-53.0) Mean Corpuscular Volume 94.8 fL (80.0-100.0) Mean Corpuscular Hemoglobin 31.5 pg (28.0-32.0) Mean Corpuscular Hemoglobin Concent 33.3 g/dL (32.0-36.0) Red Cell Distribution Width 14.2 % (11.8-14.3) Platelet Count 182 10^3/uL (140-450) Mean Platelet Volume 8.7 fL (6.9-10.8) Neutrophils (%) (Auto) 40.1 % (37.0-80.0) Lymphocytes (%) (Auto) 44.3 % (10.0-50.0) Monocytes (%) (Auto) 7.2 % (0.0-12.0) Eosinophils (%) (Auto) 7.2 % (0.0-7.0) Basophils (%) (Auto) 1.2 % (0.0-2.0) Neutrophils # (Auto) 1.8 10 ^3/uL (1.6-8.6) Lymphocytes # (Auto) 2.0 10 ^3/uL (0.4-5.4) Monocytes # (Auto) 0.3 10 ^3/uL (0-1.3) Eosinophils # (Auto) 0.3 10 ^3/uL (0-0.8) Basophils # (Auto) 0.1 10 ^3/uL (0-0.2) Nucleated Red Blood Cells 0.0 % Sodium Level 140 mmol/L (136-145) Potassium Level 3.5 mmol/L (3.5-5.1) Chloride Level 105 mmol/L (98-107) Carbon Dioxide Level 29 mmol/L (20-31) Anion Gap 6 (5-15) Blood Urea Nitrogen 10 mg/dL (9-23) Creatinine 0.81 mg/dL (0.700-1.30) Glomerular Filtration Rate Calc 98 mL/min (>90) BUN/Creatinine Ratio 12.3 (10.0-20.0) Serum Glucose 91 mg/dL (74-106) Calcium Level 9.3 mg/dL (8.7-10.4) Other Laboratory Tests 08/01/24 14:24 Brief Hx & Hospital Course: Patient is a 64-year-old male with past medical history of cerebral palsy, hypertension, tremors, who came in at the direction of his PCP. According to the patient for the past few months has been experiencing left foot discoloration which is localized to the left heel and posterior aspect of the left foot. Patient notes that yesterday he started experiencing a pain in his left foot which was constant, throbbing and 10/10. He has noticed that using [id number] topical analgesics minimally helped his pain, bearing weight worsens the pain. Hospital course: Examination of the left foot revealed no edema, normal pulses and posterior aspect of the left foot swollen, no erythema, mildly tender to palpation and hyperpigmented. Arterial doppler: No hemodynamically significant stenosis based on peak systolic velocity criteria. Patient was treated with IV clindamycin 300 mg Q 8 hours for possible cellulitis. Xray of Lt foot demonstrated no evidence of acute fracture or dislocation and no radiopaque foreign body. CT of the left foot revealed soft tissue swelling and edema around the ankle and proximal foot and no definite CD finding of osteomyelitis. Discharge plan was discussed with the patient and all questions were answered . Patient is being discharged to home. Discharge diagnosis: Possible left heel cellulitis Essential Hypertension History of cerebral palsy Discharge disposition: Home Medications : Augmentin 875 mg bid for 7 days, ibuprofen 400 mg 1 tab t.i.d. for 8 days and, diclofenac sodium topical 1% gel b.i.d. for 7 days and continue home medications Follow up : PCP in 1 week Podiatry in 1-2 weeks Consults/Reason for consult No consultation was done. Operations or Procedures Left Lower Extremity Arterial Duplex Clinical History: Peripheral vascular disease Comparison: None Technique: Duplex Doppler evaluation including color Doppler and spectral/pulsed waveform analysis of the lower extremity arteries was performed. Findings: Left: Peak systolic velocities are as follows: VERIFICATION MANAGER 86 cm/s Deep femoral 30 cm/s SFA proximal 66 cm/s SFA mid-portion 54 cm/s SFA distal 30 cm/s Popliteal 38 cm/s Posterior tibial 32 cm/s Anterior tibial 62 cm/s Dorsalis pedis 47 cm/s Monophasic waveform within the left dorsalis pedis artery. Otherwise, biphasic and triphasic waveforms throughout the left lower extremity arteries. IMPRESSION: No hemodynamically significant stenosis based on peak systolic velocity criteria. Monophasic waveform within the left dorsalis pedis artery which may be from vasodilation. EXAM: XY L FOOT 2 VIEW XRAY CLINICAL INDICATION: Lt foot pain TECHNIQUE: XY L FOOT 2 VIEW XRAY Comparison: None FINDINGS/IMPRESSION: There is no evidence of acute fracture or dislocation. Chronic deformed involving the 1st MTP joint The alignment is anatomical. There is no radiopaque foreign body EXAMINATION: CT CT L FOOT WO CONTRAST INDICATION: Lt foot pain COMPARISON: Left foot radiograph dated 08/02/2024 TECHNIQUE: CT of the left foot was performed without contrast. Volume transverse images were obtained reconstructed in multiple planes using bone and soft tissue algorithms. Radiation Dose Information: CT Dose: CTDI volume is 7.75 mGy. Dose-length product is 176.05 mGy*cm FINDINGS: Pes planus. Diffuse osteopenia. The joint spaces are normal. There is no fracture, dislocation, or focal osseous lesions. There are no joint effusions. Soft-tissue swelling and edema around the ankle and proximal foot. IMPRESSION: No definite CT findings of osteomyelitis. Condition at Discharge: Stable Final Diagnosis/Problems List Possible left heel cellulitis Essential Hypertension History of cerebral palsy Discharge Disposition: Home Discharge Instruct/Medications Diet: Cardiac 2g Na,low cholest Activity: No Restrictions, As Tolerated Follow Up/Referral: Follow up with PCP in 1 week. Medications: Augmentin 875 mg b.i.d for 7 days Ibuprofen 400 mg t.i.d PRN Discharge Statement: "Patient was advised to return to the ER or call 911 if any headaches, dizziness, shortness of breath, chest pain, abdominal pain, bleeding, fevers, or worsening of medical condition. Patient was counseled about treatment plan, medications, possible side effects, patientverbalized understanding. All questions were answered to the best of my ability. This discharge took greater then 30 minutes in planning, reviewing documentation, counseling the patient, and discussing with other team members." ASSESSMENT ASSESSMENT Assessment Possible left heel cellulitis Essential Hypertension History of cerebral palsy LEXIE DAILEY RESIDENT Aug 02, 2024 14:47
[2024-08-02 15:43] VITALS: BP 120/69; PULSE 72; RESP 18; TEMP 98.4; O2SAT 99
[2024-08-02 16:17] VITALS: BP 120/69; PULSE 72; RESP 18; TEMP 98.4; O2SAT 99
== END 2024-08-02 22:20 | disposition home or self-care (01) | DRG 603 ==
LOC: ER 13:29 → OVERFLOW 21:48 → WEST WING 08-02 15:42
PROVIDERS: ADMIT Student in an Organized Health Care Education/Training Program; ATTEND Internal Medicine
DX: L03.116 Cellulitis of left lower limb (principal); I10 Essential (primary) hypertension; I73.9 Peripheral vascular disease, unspecified; Z20.822 Contact with and (suspected) exposure to COVID-19; G80.9 Cerebral palsy, unspecified; Z87.442 Personal history of urinary calculi; Z88.8 Allergy status to other drugs, medicaments and biological substances; Z79.899 Other long term (current) drug therapy
CPT/HCPCS: 36415; 71045; 73620; 73700; 80048; 81001; 83036; 84443; 85025; 87426; 87804; 93926; G0378; J2470; J3490